=== PATIENT | female | born 1975 | race Caucasian/White ===

== ENCOUNTER 2018-08-17 09:45 | Inpatient (IN) | payer BC ==
[2018-08-17] MEDS ORDERED: Lactated Ringer's 1,000 ML IV SCH ×2 (10:15→14:46)
[2018-08-17] MEDS ORDERED: Ondansetron PF 4 MG/2 ML Vial IVP PRN ×4 (10:15→21:35)
[2018-08-17] MEDS ORDERED: CEFAZOLIN/Water 2 GM/20 ML SYRINGE SLOW IVP SCH (10:15)
[2018-08-17] MEDS ORDERED: Promethazine HCl 25 MG/ML VIAL IM PRN ×4 (10:15→21:35)
[2018-08-17] MEDS ORDERED: Bicitra 30 ML UDCUP PO SCH (10:15)
--- NOTE | 2018-08-17 10:17 | PDOC.LDHP ---
Labor and Delivery H&P Chief complaint: scheduled section HPI: Pt is a 43yo @ 39+ weeks with breech presentation, declines ECV, here for scheduled 1CS. Current gestational age (weeks): 39 Due date: 08/20/18 Dating criteria: last menstrual period, first trimester ultrasound Grav: 2 Para: 1 OB History Details: x 1 Current complications: breech Abnormal US findings: Yes (breech presentation) Past Medical History: hypothyroidism Current medications: pre- vitamins, other (levothyroxine 150mcg a day) Previous surgical history: none, other (orthopedic to shoulder) Allergies/Adverse Reactions: Allergies Allergy/AdvReac Type Severity Reaction Status Date / Time No Known Drug Allergies Allergy Verified 10/09/16 22:08 sulfamethoxazole Allergy Verified 08/17/18 10:21 [From Bactrim] trimethoprim [From Bactrim] Allergy Verified 08/17/18 10:21 Social history: none - Physical Exam Vital signs reviewed and normal: yes General: resting Heart: RRR Lungs: CTAB Abdomen: gravid Extremeties: no edema FHT: category 1 - OB Labs Blood type: O RH: positive Antibody Screen: negative HIV: negative RPR: negative HEPSAg: negative 1 hour GCT: negative GBS: positive Rubella: immune - Assessment L&D Assessment: scheduled primary section (for breech presentation, declines ECV) - Plan Plan: admit to L&D, to OR for section, informed consent obtained, anesthesia consult for pain management
[2018-08-17 10:19] VITALS: BMI 24.0
[2018-08-17] MEDS ORDERED: CEFAZOLIN 2 GM in Premix Bag 1 BAG IVPB SCH (10:30)
[2018-08-17 10:45] LABS: Hemoglobin 12.2 g/dL (12.0-16.0); Mean Corpuscular HGB CONC 32.9 g/dL (32.0-36.0); Mean Corpuscular Hemoglobin 29.4 pg (27.0-31.0); Mean Corpuscular Volume 89.5 fL (78.0-98.0); Mean Platelet Volume 8.6 fL (7.4-10.4); Platelet Count 253 thou/uL (130-400); RBC Distribution Width 13.4 % (11.5-14.5); Red Blood Cell (RBC) Count 4.15 mill/uL (4.20-5.40); White Blood Cell (WBC) Count 8.3 thou/uL (4.8-10.8)
[2018-08-17] MEDS ORDERED: Ropivacaine 0.2% 550 ML 750 ML NERVE BLCK SCH (11:15)
[2018-08-17] MEDS ORDERED: Ropivacaine HCl/PF 750 ML in Premix Bag 1 BAG NERVE BLCK SCH (11:15)
[2018-08-17 11:27] LABS: HBSAg Index 0.26 S/CO (0-0.99); Hep B Surf Ag Non-Reactive S/CO (NonReactive)
[2018-08-17] MEDS ORDERED: MORPHINE 5 MG/10 ML PF VIAL ONE (12:42)
[2018-08-17] MEDS ORDERED: Ondansetron PF 4 MG/2 ML Vial ONE (12:43)
[2018-08-17] MEDS ORDERED: ePHEDrine/0.9% NaCl/PF SYRINGE 50 mg/10 ml ONE (12:43)
[2018-08-17] MEDS ORDERED: Oxytocin 10 UNITS/ML VIAL ONE (12:43)
[2018-08-17] MEDS ORDERED: Ketorolac Tromethamine 30 MG/ML VIAL ONE ×2 (12:43→13:44)
[2018-08-17] MEDS ORDERED: Dexamethasone 4 mg/ml Vial ONE (12:43)
[2018-08-17] MEDS ORDERED: Promethazine HCl 25 MG SUPP PR PRN ×2 (13:03→21:35)
[2018-08-17] MEDS ORDERED: diphenhydrAMINE 50 MG/ML VIAL IVP PRN ×2 (13:03→21:35)
[2018-08-17] MEDS ORDERED: Ketorolac Tromethamine 30 MG/ML VIAL IVP PRN ×3 (13:03→21:35)
[2018-08-17] MEDS ORDERED: Naloxone HCl 0.4 mg/ml Vial IV PRN ×3 (13:03→21:35)
[2018-08-17] MEDS ORDERED: Naloxone HCl 0.4 mg/ml Vial IVP PRN ×3 (13:03→21:35)
[2018-08-17] MEDS ORDERED: Eucerin (Mineral Oil/Petrolatum,White) 30 gm Jar TOP PRN (13:03)
[2018-08-17] MEDS ORDERED: Communication Order-Pharmacy FS SCH (13:15)
[2018-08-17] MEDS ORDERED: Bupivacaine 0.25% HCL 30 ML VIAL ONE (13:42)
[2018-08-17] MEDS ORDERED: Dexamethasone 20 MG/5 ML VIAL ONE (13:44)
[2018-08-17] MEDS ORDERED: ePHEDrine 50 MG/ML VIAL ONE (13:44)
--- NOTE | 2018-08-17 13:59 | PDOC.OPDEL ---
OB Operative/Delivery Note Delivery Dr/Surgeon: Elian Assist: Percy Chaves Pre-Delivery Diagnosis: scheduled section (akshat breech, OnQ placed as well) Weeks gestation: 39 Anesthesia: spinal - Findings A Sex: male Weight: 6 lb 8 oz - 1 min: 8 - 5 min: 9 - Additional Findings/Plan Placenta delivered: manual removal findings: low transverse hysterotomy without extension, normal uterus, normal tubes, normal ovaries Estimated blood loss: 750ml Compilations/Other Findings: akshat breech presentation, delivered easily with gentle rotation Post delivery plan: routine recovery
[2018-08-17] MEDS ORDERED: Adacel (T-DAP) 0.5 ML SYRINGE IM ONE (14:46)
[2018-08-17] MEDS ORDERED: Bisacodyl 10 MG SUPP PR PRN (14:46)
[2018-08-17] MEDS ORDERED: Misoprostol 200 MCG TAB PR PRN (14:46)
[2018-08-17] MEDS ORDERED: Acetaminophen 325 MG TAB PO PRN (14:46)
[2018-08-17] MEDS ORDERED: NS / Oxytocin 40 units/1000ml 1,000 ML IV SCH (14:46)
[2018-08-17] MEDS ORDERED: Lanolin Ointment 7 GM TUBE TOP PRN (14:46)
[2018-08-17] MEDS ORDERED: Simethicone Chewable 80 MG TAB PO PRN (14:46)
[2018-08-17] MEDS ORDERED: diphenhydrAMINE 25 MG CAP PO PRN (14:46)
--- NOTE | 2018-08-17 16:54 | OP ---
DATE OF PROCEDURE: 08/17/2018 PREOPERATIVE DIAGNOSES: 1. A 43-year-old, G2, P1, at 39 weeks. 2. Persistent breech presentation, declines external cephalic version. POSTOPERATIVE DIAGNOSES: 1. A 43-year-old, G2, P1, at 39 weeks. 2. Persistent breech presentation, declines external cephalic version. PROCEDURES PERFORMED: 1. Primary low-transverse section. 2. Placement of ON-Q nerve block pump. MOBILE HOME SET UP PERSON: Elisabet Greer PA-C and Stephane Chaves MD. ANESTHESIA: Spinal per Dr. Pruitt. COMPLICATIONS: None. ESTIMATED BLOOD LOSS: 750 mL. OPERATIVE FINDINGS: 1. Low-transverse hysterotomy without extension. 2. Normal-appearing uterus, tubes, and ovaries bilaterally. 3. Infant delivered from akshat breech presentation with gentle rotation. 4. Hysterotomy hemostatic. 5. Male . Apgars 8 and 9. Weight 6 pounds and 8 ounces. DESCRIPTION OF PROCEDURE: The patient was taken back to the OR with IV fluids running. When she was in the OR, spinal anesthesia was obtained. The patient was then placed in dorsal supine position with a left lateral tilt. Rubin catheter was placed using sterile technique. Ancef 2 g was given. The abdomen was then prepped and draped in normal fashion for section. The surgeons were gowned and gloved and the abdomen was tested and anesthesia was found to be adequate. A Pfannenstiel skin incision was then made with a scalpel. The skin incision was carried down through the thin layer of subcutaneous fat until the fascia was reached. Once the fascia was reached, it was incised in the midline and extended superolaterally using curved Hitchcock scissors. Audi clamps were placed at the superior border of the fascia, which was sharply and bluntly dissected off the rectus abdominis muscles. In similar fashion, the Audi clamps were placed at the inferior border of the fascia, which was dissected down towards the level of the pubic symphysis. The rectus muscles were bluntly in the midline. The peritoneum was bluntly entered and stretched laterally. An Dane O retractor was placed into the abdominal cavity for retraction, visualization, and protection of the wound. A bladder flap was created using Metzenbaum scissors and the bladder flap was dissected away from the planned hysterotomy site. A low-transverse hysterotomy was made with a scalpel. The hysterotomy was bluntly entered with the surgeon's fingers and stretched using a Cano maneuver. The infant's buttock was noted at the level of the hysterotomy. With gentle pressure, the 's buttocks and lower extremities were delivered through the incision. With gentle rotation, the upper extremities and head were spontaneously delivered. There was immediate cry. The nose and mouth were suctioned. The cord was doubly clamped and cut and the infant was handed off to special care nurse in attendance. Cord blood was collected. The placenta was delivered. Uterus was exteriorized, massaged to firm, and cleared of clot and debris. The hysterotomy was inspected and no extensions were noted. The hysterotomy was then closed with Monocryl suture in a running locked fashion. After the hysterotomy was closed, the hysterotomy was inspected with no bleeding noted. The fundus was palpated and noted to be very firm. The hysterotomy and paracolic gutters were copiously irrigated and suctioned dry. The hysterotomy was inspected again with no areas of bleeding noted. The Dane O retractor was removed from the abdominal cavity. The hysterotomy was then inspected one last time with no bleeding noted. The peritoneum was identified and reapproximated using plain gut suture. The muscle belly was inspected with no areas of bleeding noted. Two ON-Q catheter tips were placed superior to the incision through the skin, subcutaneous fat, and fascia. They were each directed down crossing into the corners of the incision between the fascia and the rectus muscle. The catheter tips were then primed. The fascia was then reapproximated using PDS suture from corner to corner. Subcutaneous tissue was irrigated and then dried. No areas of bleeding were noted. The skin was closed with 4-0 Monocryl and dressed with Dermabond dressing. Sterile dressings were applied over the incision as well as the ON-Q catheter tips. The patient tolerated the procedure well. There were no complications. Job ID: [id number]
[2018-08-17] MEDS ORDERED: Hydrocerin (Eucerin) Cream 120 gm Jar TOP PRN (21:35)
[2018-08-17] MEDS ORDERED: Ketorolac Tromethamine 60 MG/2 ML VIAL IVP PRN (21:35)
[2018-08-17] MEDS ORDERED: Acetaminophen 1,000 MG in Premix Bag 1 BAG IVPB PRN (21:35)
[2018-08-18] MEDS ORDERED: HYDROcodone/Acetaminophen 5/325 mg Tablet PO PRN (01:15)
[2018-08-18] MEDS: Ibuprofen 800 MG TAB PO SCH ×5 (01:34→21:32)
[2018-08-18] MEDS: Docusate Calcium (SURFAK) 240 MG CAP PO SCH ×3 (01:34→21:32)
[2018-08-18] MEDS: Ferrous Sulfate 325 MG TAB PO SCH ×3 (01:35→21:32)
[2018-08-18 06:36] LABS: Hemoglobin 9.2 g/dL (12.0-16.0); Mean Corpuscular HGB CONC 32.7 g/dL (32.0-36.0); Mean Corpuscular Hemoglobin 29.5 pg (27.0-31.0); Mean Corpuscular Volume 90.2 fL (78.0-98.0); Platelet Count 205 thou/uL (130-400); RBC Distribution Width 13.2 % (11.5-14.5); Red Blood Cell (RBC) Count 3.14 mill/uL (4.20-5.40); White Blood Cell (WBC) Count 11.2 thou/uL (4.8-10.8)
[2018-08-18] MEDS: Prenatal Vitamin 1 TAB PO SCH (09:06)
[2018-08-18] MEDS: HYDROcodone/Acetaminophen 5/325 mg Tablet PO PRN (09:07)
--- NOTE | 2018-08-18 10:44 | PDOC.PP ---
Post Progress Note Post Day #: 1 Subjective: reports NO pain, no nausea, doing well, no concerns PO intake tolerated: yes Flatus: yes Ambulation: yes Vital Signs (12 hours) Temp Pulse Resp BP Pulse Ox 08/18/18 08:50 97.7 F 75 16 123/78 97 08/18/18 03:45 97.8 F 75 16 118/66 08/18/18 00:03 98.4 F 81 17 114/70 Weight Weight 140 lb - Physical Examination General: NAD Respiratory: non-labored breathing Abdominal: no distention Fundus firm & at: below umb Skin: CS incision dry & intact Psychiatric: A&Ox3, normal affect Result Diagrams: 08/18/18 06:20 Additional Labs: Post Labs Blood Type O POSITIVE 08/17/18 10:26 Hep Bs Antigen Non-Reactive S/CO (NonReactive) 08/17/18 10:26 (1) delivery delivered Code(s): O82 - ENCOUNTER FOR DELIVERY WITHOUT INDICATION Status: Acute (2) Breech presentation Code(s): O32.1XX0 - MATERNAL CARE FOR BREECH PRESENTATION, UNSP Status: Acute - Assessment/Plan A/P: POD1 doing well, sp 1CS for breech at 39+ weeks. Doing well, meeting post op goals.
[2018-08-19] MEDS: HYDROcodone/Acetaminophen 5/325 mg Tablet PO PRN (03:59)
[2018-08-19] MEDS: Ibuprofen 800 MG TAB PO SCH (05:56)
[2018-08-19 07:51] VITALS: BP 125/73; TEMP 98.7
[2018-08-19] MEDS: Ferrous Sulfate 325 MG TAB PO SCH (09:28)
[2018-08-19] MEDS: Docusate Calcium (SURFAK) 240 MG CAP PO SCH (09:28)
[2018-08-19] MEDS: Prenatal Vitamin 1 TAB PO SCH (09:28)
--- NOTE | 2018-08-19 10:47 | PDOC.PP ---
Post Progress Note Post Day #: 2 Subjective: doing well, minimal discomfort, request DC home PO intake tolerated: yes Flatus: yes Ambulation: yes Vital Signs (12 hours) Temp Pulse Resp BP BP Pulse Ox 08/19/18 07:49 98.7 F 75 20 125/73 98 08/19/18 03:55 98.2 F 74 16 121/65 08/19/18 00:31 98.2 F 73 18 112/57 L Weight Weight 140 lb - Physical Examination General: NAD Respiratory: non-labored breathing Skin: CS incision dry & intact Psychiatric: A&Ox3, normal affect Result Diagrams: 08/18/18 06:20 Additional Labs: Post Labs Blood Type O POSITIVE 08/17/18 10:26 Hep Bs Antigen Non-Reactive S/CO (NonReactive) 08/17/18 10:26 (1) delivery delivered Code(s): O82 - ENCOUNTER FOR DELIVERY WITHOUT INDICATION Status: Acute (2) Breech presentation Code(s): O32.1XX0 - MATERNAL CARE FOR BREECH PRESENTATION, UNSP Status: Acute - Assessment/Plan A/P: POD2 doing well, request DC home, onQ removal instructions given. DC today.
== END 2018-08-19 13:15 | disposition home or self-care (01) | DRG 788 ==
LOC: L&D 09:45 → 3SW 21:08
PROVIDERS: ADMIT Obstetrics & Gynecology; ATTEND Obstetrics & Gynecology
PROC: 10D00Z1 Extraction of Products of Conception, Low, Open Approach (ICD-10-PCS; principal; 2018-08-17)
DX: O32.1XX0 Maternal care for breech presentation, not applicable or unspecified (principal); Z3A.39 39 weeks gestation of pregnancy; Z37.0 Single live birth; O99.284 Endocrine, nutritional and metabolic diseases complicating childbirth; E03.9 Hypothyroidism, unspecified; Z88.1 Allergy status to other antibiotic agents; Z88.2 Allergy status to sulfonamides
CPT/HCPCS: 36415; 51702; 85027; 86850; 86900; 86901; 87340; 90715; J1100; J1885; J2270; J2405; J2590; J2795; J3490; S0020